=== PATIENT | male | born 1990 | race Caucasian/White ===

== ENCOUNTER 2023-10-07 07:47 | Outpatient (CLI) | payer OTHER, SELFPAY | END 2023-10-07 07:48 | disposition home or self-care (01) | LOC: NFLDREF 15:24 | PROVIDERS: Visit Provider Family Medicine | DX: Z13.1 Encounter for screening for diabetes mellitus (principal); Z13.6 Encounter for screening for cardiovascular disorders | CPT/HCPCS: 80061; 82947 ==